=== PATIENT | female | born 1935 | race Caucasian/White ===

== ENCOUNTER 2016-11-24 09:07 | Day surgery (SDC) | payer MEDICARE, OTHER ==
--- NOTE | 2016-11-23 18:05 | PCM.PREANE ---
Preanesthetic Assessment - ANESTHESIA/TRANSFUSION/FAMILY HX Anesthesia/Transfusion History: Prior Anesthesia, Prior Transfusion Type of Anesthesia Reaction: Denies: Allergy, Anesthesia Awareness, Excessive Somnolence, Excessive Nausea/Vomiting, Excessive Itching, Excessive Shivering, Malignant Hyperthermia, Malignant Hyperthermia, Family History, Pseudocholinesterase Deficiency, Pseudocholinesterase Deficiency, Family History of, Urinary Retention, Unknown, Other (see below) Family History of Anesthesia Reaction: No Type of Transfusion Reactions: Denies: Anaphylaxis, Bloody Urine, Chills, Fainting/Dizziness, Fever, Flank Pain, Hemolytic Reaction, Hives, Rash, Transfusion Related Acute Lung Injury, Unknown, Other (see below) - REVIEW OF SYSTEMS Constitutional: Reports: no symptoms 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 Respiratory: Reports: no symptoms Cardiovascular: Reports: blood pressure problem (HTN, controlled) GI: Reports: no symptoms Other: Reports: diabetes (type II, glucose 137 this am), thyroid problems ( controlled hypoparathyroidism) - PHYSICAL ASSESSMENT Height: 1.73 m Weight: 91.626 kg NPO Status Date: 11/23/16 NPO Status Time: 21:00 ASA Class: 3 Mental Status: alert & oriented x3 Airway Class: Mallampati = 3 Dentition: Reports: dentures (upper and lower) Thyro-Mental Finger Breadths: 3 Mouth Opening Finger Breadths: 3 ROM/Head Extension: full Respiratory Status: lungs clear to auscultation bilaterally (diminished respiratory effort. O2 sats in low 90's, supplemental O2 applied in day surgery ) Cardiovascular Status: regular rate & rhythm, normal S1, S2, no murmur, blood pressure WNL - ALLERGIES Allergies/Adverse Reactions: Allergies Allergy/AdvReac Type Severity Reaction Status Date / Time No Known Allergies Allergy Verified 06/30/16 20:39 - ANESTHESIA PLAN Anesthesia Type Planned: MAC - ACKNOWLEDGEMENTS Pt an appropriate candidate for the planned anesthesia: Yes Alternatives and risks of anesthesia discussed w pt/guardian: Yes Pt/Guardian understands and agree with anesthesia plan: Yes PreAnesthesia Questionnaire HEENT History: Reports: None Other HEENT History: wears glasses, has top and bottom dentures Cardiovascular History: Reports: High cholesterol, Hypertension Respiratory History: Reports: None Gastrointestinal History: Reports: Other (see below) Other Gastrointestinal History: occasional heartburn, intermittent rectal bleeding increasing in frequency Genitourinary History: Reports: None 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: , Other (see below) Other OB/BYN History: 1991 hysterectomy; 5 pregnancies Musculoskeletal History: Reports: Osteoarthritis, Other (see below) Other Musculoskeletal History: hx of right pelvis fracture Neurological History: Psychiatric History: Reports: Depression Endocrine/Metabolic History: Reports: Diabetes, type II, Hypoparathyroidism Other Endocrine/Metabolic History: history of hypercalcemia Hematologic History: Reports: None Immunologic History: Reports: None Oncologic (Cancer) History: Reports: None Dermatologic History: Reports: None - Infectious Disease History Infectious Disease History: Reports: Chicken pox - Past Surgical History Head Surgeries/Procedures: Reports: None HEENT Surgical History: Reports: Cataract surgery Cardiovascular Surgical History: Reports: None GI Surgical History: Reports: Cholecystectomy Female Surgical History: Reports: Hysterectomy Endocrine Surgical History: Reports: Parathyroidectomy Neurological Surgical History: Reports: None - SUBSTANCE USE Smoking Status *Q: Never Smoker Second Hand Smoke Exposure: Yes Days Per Week of Alcohol Use: 0 Recreational Drug Use History: No - HOME MEDS Home Medications: Home Meds Donepezil HCl 10 mg PO BEDTIME 02/12/15 [History] Losartan [Cozaar] 25 mg PO DAILY 02/12/15 [History] SitaGLIPtin [Januvia] 50 mg PO DAILY 02/12/15 [History] Tolterodine Tartrate [Tolterodine Tartrate ER] 4 mg PO DAILY 02/12/15 [History] amLODIPine [Norvasc] 5 mg PO DAILY 02/12/15 [History] atorvaSTATin [Lipitor] 80 mg PO BEDTIME 02/12/15 [History] Acetaminophen [Tylenol] 650 mg PO Q4H PRN 06/30/16 [History] Cholecalciferol (Vitamin D3) [Vitamin D] 2,000 unit PO DAILY 06/30/16 [History] Venlafaxine HCl [Venlafaxine HCl ER] 75 mg PO DAILY 11/19/16 [History] - CURRENT (IN HOUSE) MEDS Current Meds: Current Medications Lactated Ringer's (Ringers, Lactated) 1,000 mls @ 125 mls/hr IV ASDIRECTED KIEL
[~2016-11-24 09:07] MED LIST: Lactated Ringers 1,000 ML IV SCH
[2016-11-24] MEDS ORDERED: fentaNYL 100 MCG/2 ML SDV ONE (09:39)
[2016-11-24] MEDS ORDERED: Propofol 200 MG/20 ML SDV ONE (09:39)
[2016-11-24] MEDS ORDERED: Midazolam 1 MG/ML 2 ML SDV ONE (09:39)
--- NOTE | 2016-11-24 11:19 | PCM.OPNOTE ---
- General Post-Op/Procedure Note Date of Surgery/Procedure: 11/24/16 (10:47-11:10) Operative Procedure(s): colonoscope Findings: see dict [id number] Pre Op Diagnosis: anemia Post-Op Diagnosis: diverticulosis Anesthesia Technique: Moderate sedation Primary Surgeon: Koffi Barnhart Complications: None Condition: Good
--- NOTE | 2016-11-24 11:29 | PCM.POSTAN ---
POST ANESTHESIA ASSESSMENT - MENTAL STATUS Mental Status: alert, oriented - RESPIRATORY Respiratory Status: respiratory rate WNL, airway patent, O2 saturation stable - CARDIOVASCULAR CV Status: pulse rate WNL, blood pressure stable - GASTROINTESTINAL GI Status: no symptoms - PAIN Pain Score: 0 - POST OP HYDRATION Hydration Status: adequate & stable
[2016-11-24 11:43] VITALS: BP 125/64
--- NOTE | 2016-11-24 11:50 | PCM48HPAN ---
Post Anesthesia Note - EVALUATION WITHIN 48HRS OF ANESTHETIC Vital Signs in Normal Range: Yes Patient Participated in Evaluation: Yes Respiratory Function Stable: Yes Airway Patent: Yes Cardiovascular Function Stable: Yes Hydration Status Stable: Yes Pain Control Satisfactory: Yes Nausea and Vomiting Control Satisfactory: Yes Mental Status Recovered: Yes
--- NOTE | 2016-11-24 19:24 | OR ---
SURGEON: Koffi Barnhart MD DATE OF PROCEDURE: 11/24/2016 PREOPERATIVE DIAGNOSIS: Anemic. POSTOPERATIVE DIAGNOSIS: Diverticulosis. COMPLICATIONS: None. PROCEDURE PERFORMED: Colonoscopy. DESCRIPTION OF PROCEDURE: The patient was taken to the endoscopy room. A time out was called, patient identified, and procedure identified. Diprivan was then administrated. Patient went from awake to sleep, hearing doctor talking or door closing is normal. Perineum inspection and digital examination were then performed. A well- lubricated colonoscope was gently inserted through the rectum, advanced past the rectosigmoid junction, the descending colon, splenic flexure, transverse colon, hepatic flexure, ascending colon, arrived to the cecum. Cecum was identified as dictated in the finding. Then the scope was carefully withdrawn while attention was paid to the mucosal surface for any abnormality. Air will be sucked out during the scope withdrawal. At the rectum, retroflexed to examine any rectal diseases, fistula or hemorrhoids. Patient tolerated procedure well. There were no intraoperative complications, and Dr. Barnhart was present throughout the whole procedure. FINDINGS: 1. 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 The patient is soundly snoring. 2. The patient's bowel prep was excellent. Very little liquid stool. No semi- formed stool. 3. The patient's colon rather straight forward. Cecum indicated by ileocecal fold, one-to-one indentation, light immittance, and appendiceal orifice. The mucosa was examined upon scope pulling out and the patient has some mild diverticulosis on the left colon. No signs or symptoms of diverticulitis. No polyp, mass, growth, inflammation, stricture, AV malformation, bleeding, ulceration. The patient has mild external hemorrhoids. The patient would benefit from repeat colonoscopy on an as needed basis or if clinically indicated otherwise. MAYLIN / KENNY /[id number]
== END 2016-11-24 12:00 | disposition home or self-care (01) ==
LOC: MW.SDS 09:07
PROVIDERS: ATTEND Surgery
DX: K57.30 Diverticulosis of large intestine without perforation or abscess without bleeding (principal); I10 Essential (primary) hypertension; F41.9 Anxiety disorder, unspecified; E11.9 Type 2 diabetes mellitus without complications; E78.00 Pure hypercholesterolemia, unspecified; E78.5 Hyperlipidemia, unspecified; Z90.710 Acquired absence of both cervix and uterus; Z79.899 Other long term (current) drug therapy; Z78.9 Other specified health status
CPT/HCPCS: 45378; 82962; J2250; J3010; J7120; J2704

== ENCOUNTER → 2016-12-04 | Outpatient (CLI) | payer MEDICARE, OTHER | LOC: MW.CHGS 08:00 | PROVIDERS: ATTEND Surgery | DX: K57.30 Diverticulosis of large intestine without perforation or abscess without bleeding (principal) | CPT/HCPCS: G0463 ==

== ENCOUNTER 2018-01-20 09:48 | Emergency (ER) | payer MEDICARE, OTHER ==
--- NOTE | 2018-01-20 10:09 | EDM.PDOC ---
ED HPI GENERAL MEDICAL PROBLEM - General Chief Complaint: ENT Problem Stated Complaint: FEVER AND RT EAR IS SWOLLEN Time Seen by Provider: 01/20/18 10:03 Source of Information: Reports: Patient History Limitations: Reports: No Limitations - History of Present Illness INITIAL COMMENTS - FREE TEXT/NARRATIVE: HISTORY AND PHYSICAL: []82-year-old female is swollen red ear company by daughter History of Present Illness: []Daughter last saw her 4 PM yesterday and ear was not erythematous Patient is speaking in full sentences. Denies any fever denies any change in mental stability Review of Systems: As per history of present illness and below otherwise all systems reviewed and negative. Past medical history: As per history of present illness and as reviewed below otherwise noncontributory. Surgical history: As per history of present illness and as reviewed below otherwise noncontributory. Social history: No reported history of drug or alcohol abuse. Family history: As per history of present illness and as reviewed below otherwise noncontributory. Physical exam: Alert and oriented elderly female who is right ear is quite erythematous and edematous. Edema comes from behind the pinna across the ear and half of her cheek. Hot To touch. No pustular component no scaling. HEENT: Atraumatic, normocehpalic, pupils reactive, negative for conjunctival pallor or scleral icterus, mucous membranes moist, throat clear, neck supple, nontender, trachea midline. Lungs: Clear to auscultation, breath sounds equal bilaterally, chest non tender. Heart: S1S2, regular, negative for clicks, rubs, or JVD. Abdomen: Soft, nondistended, nontender. Negative for masses or hepatossplenmegaly. Negative for costovertebral tenderness. Pelvis: Stable nontender. Genitourinary: Deferred. Rectal: Deferred Extremities: Atraumatic, negative for cords or calf pain. Neurovascular unremarkable. Neuro: Awake, alert, oriented. Cranial nerves II through XII unremarkable. Cerebellum unremarkable. Motor and sensory unremarkable throughout. Exam nonfocal. Discussed this case with Dr. Ina Thomas, ENT specialist who is in agreement with this plan of action. Diagnostics: [] Therapeutics: [] Impression: [Cellulitis versus spider bite] Plan: []Home See Dr. Gayle tomorrow if unable to be seen return to emergency room for reevaluation Augmentin 875 twice a day Medrol Dosepak Definitive disposition and diagnosis as appropriate pending reevaluation and review of above. R ear Pain Score (Numeric/FACES): 3 - Related Data Allergies Allergy/AdvReac Type Severity Reaction Status Date / Time No Known Allergies Allergy Verified 06/30/16 20:39 Home Meds: Home Meds Donepezil HCl 10 mg PO BEDTIME 02/12/15 [History] Losartan [Cozaar] 25 mg PO DAILY 02/12/15 [History] SitaGLIPtin [Januvia] 50 mg PO DAILY 02/12/15 [History] Tolterodine Tartrate [Tolterodine Tartrate ER] 4 mg PO DAILY 02/12/15 [History] atorvaSTATin [Lipitor] 80 mg PO BEDTIME 02/12/15 [History] Acetaminophen [Tylenol] 650 mg PO Q4H PRN 06/30/16 [History] Cholecalciferol (Vitamin D3) [Vitamin D] 2,000 unit PO DAILY 06/30/16 [History] Venlafaxine HCl [Venlafaxine HCl ER] 75 mg PO DAILY 11/19/16 [History] Amoxicillin/Potassium Clav [Augmentin 875-125 Tablet] 1 each PO Q12HR #14 tablet 01/20/18 [Rx] L.acidoph,Paracasei, B.lactis [Probiotic] 1 cap PO DAILY 01/20/18 [History] Levothyroxine 25 mcg PO DAILY 01/20/18 [History] Sertraline [Zoloft] 25 mg PO DAILY 01/20/18 [History] methylPREDNISolone [Medrol] 4 mg PO ASDIRECTED #1 dosepk 01/20/18 [Rx] Past Medical History HEENT History: Reports: None Other HEENT History: wears glasses, has top and bottom dentures Cardiovascular History: Reports: High Cholesterol, Hypertension Respiratory History: Reports: None Gastrointestinal History: Reports: Other (See Below) Other Gastrointestinal History: occasional heartburn, intermittent rectal bleeding increasing in frequency Genitourinary History: Reports: None 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: , Other (See Below) Other OB/BYN History: 1991 hysterectomy; 5 pregnancies Musculoskeletal History: Reports: Osteoarthritis, Other (See Below) Other Musculoskeletal History: hx of right pelvis fracture Neurological History: Psychiatric History: Reports: Depression Other Psychiatric History: Early Dementia Endocrine/Metabolic History: Reports: Diabetes, Type II, Hypoparathyroidism Other Endocrine/Metabolic History: history of hypercalcemia Hematologic History: Reports: None Immunologic History: Reports: None Oncologic (Cancer) History: Reports: None Dermatologic History: Reports: None - Infectious Disease History Infectious Disease History: Reports: Chicken Pox, Mumps - Past Surgical History Head Surgeries/Procedures: Reports: None HEENT Surgical History: Reports: Cataract Surgery Female Surgical History: Reports: Hysterectomy Neurological Surgical History: Reports: None Social & Family History - Family History Family Medical History: Unobtainable - Tobacco Use Smoking Status *Q: Never Smoker Second Hand Smoke Exposure: Yes - Caffeine Use Caffeine Use: Reports: Coffee - Alcohol Use Days Per Week of Alcohol Use: 0 - Recreational Drug Use Recreational Drug Use: No ED ROS ENT - Review of Systems Review Of Systems: ROS reveals no pertinent complaints other than HPI. ED EXAM, ENT - Physical Exam Exam: See Below (see dictation) Course - Vital Signs Last Recorded V/S: Last Vital Signs Temp 37.0 C 01/20/18 09:57 Pulse 85 01/20/18 09:57 Resp 18 01/20/18 09:57 BP 194/92 H 01/20/18 09:57 Pulse Ox 92 L 01/20/18 09:57 Departure - Departure Time of Disposition: 10:15 Disposition: Home, Self-Care 01 Condition: Good Clinical Impression: Cellulitis of right ear Otitis externa Qualifiers: Noninfectious otitis externa type: unspecified noninfectious type Chronicity: acute Laterality: right - Discharge Information Prescriptions: Amoxicillin/Potassium Clav [Augmentin 875-125 Tablet] 1 each PO Q12HR #14 tablet methylPREDNISolone [Medrol] 4 mg PO ASDIRECTED #1 dosepk Instructions: Cellulitis, Adult, [id number] Referrals: Jonathan Gayle MD [Primary Care Provider] - Forms: ED Department Discharge Additional Instructions: The following information is given to patients seen in the emergency department who are being discharged to home. This information is to outline your options for follow-up care. We provide all patients seen in our emergency department with a follow-up referral. The need for follow-up, as well as the timing and circumstances, are variable depending upon the specifics of your emergency department visit. If you don't have a primary care physician on staff, we will provide you with a referral. We always advise you to contact your personal physician following an emergency department visit to inform them of the circumstance of the visit and for follow-up with them and/or the need for any referrals to a consulting specialist. The emergency department will also refer you to a specialist when appropriate. This referral assures that you have the opportunity for followup care with a specialist. All of these measure are taken in an effort to provide you with optimal care, which includes your followup. Under all circumstances we always encourage you to contact your private physician who remains a resource for coordinating your care. When calling for followup care, please make the office aware that this follow-up is from your recent emergency room visit. If for any reason you are refused follow-up, please contact the [facility] emergency department at and asked to speak to the emergency department charge nurse. Found to have a cellulitis 2-year-old right ear Augmentin 875 mg twice daily 1 week Medrol dose pack will reduce the swelling Follow-up with your primary care tomorrow Follow-up with Dr. Ina Thomas ENT specialist on Wednesday [facility] [address] [place] [address] Phone:
[2018-01-20 11:27] VITALS: BP 154/89
== END 2018-01-20 10:45 | disposition home or self-care (01) ==
LOC: MW.ED 09:48
DX: H60.11 Cellulitis of right external ear (principal); H60.501 Unspecified acute noninfective otitis externa, right ear; I10 Essential (primary) hypertension; E11.9 Type 2 diabetes mellitus without complications; Z79.899 Other long term (current) drug therapy
CPT/HCPCS: 99283

== ENCOUNTER 2019-02-05 13:39 | Emergency (ER) | payer MEDICARE, OTHER ==
[2019-02-05] MEDS ORDERED: Ketorolac 30 MG/ML SDV IM ONE (13:54)
--- NOTE | 2019-02-05 15:00 | EDM.PDOC ---
ED HPI GENERAL MEDICAL PROBLEM - General Chief Complaint: Lower Extremity Injury/Pain Stated Complaint: BETHAL PT Time Seen by Provider: 02/05/19 13:43 Source of Information: Reports: Patient History Limitations: Reports: No Limitations - History of Present Illness INITIAL COMMENTS - FREE TEXT/NARRATIVE: History of present illness: []Patient states she's having right hip pain does not recall any trauma. She came to the ED on the [employer] bus and is currently living at the [facility]. Review of systems: As per history of present illness and below otherwise all systems reviewed and negative. Past medical history: As per history of present illness and as reviewed below otherwise noncontributory. Surgical history: As per history of present illness and as reviewed below otherwise noncontributory. Social history: No reported history of drug or alcohol abuse. Family history: As per history of present illness and as reviewed below otherwise noncontributory. Physical exam: General: Well developed, well nourished in NAD HEENT: Atraumatic, normocephalic, pupils reactive, negative for conjunctival pallor or scleral icterus, mucous membranes moist, throat clear, neck supple, nontender, trachea midline. Lungs: Clear to auscultation, breath sounds equal bilaterally, chest nontender. Heart: S1S2, regular, negative for clicks, rubs, or JVD. Abdomen: NABS, Soft, nondistended, nontender. Negative for masses or hepatosplenomegaly. Negative for costovertebral tenderness. Pelvis: Stable nontender. Genitourinary: Deferred. Rectal: Deferred. Extremities: Atraumatic, tender to palpation of the right hip, there is no leg rotation or shortening on the right MVI. negative for cords or calf pain. Neurovascular unremarkable. Neuro: Awake, alert, oriented. Cranial nerves II through XII unremarkable. Cerebellum unremarkable. Motor and sensory unremarkable throughout. Exam nonfocal. Skin:warm and dry Diagnostics: Right hip and pelvis Therapeutics: Toradol for pain ED Course: stable Impression: right hip pain Prescriptions: None Plan: Follow-up with primary care ibuprofen for pain return if symptoms worsen or change. Definitive disposition and diagnosis as appropriate pending reevaluation and review of above. right hip Pain Score (Numeric/FACES): 9 - Related Data Allergies Allergy/AdvReac Type Severity Reaction Status Date / Time No Known Allergies Allergy Verified 02/05/19 13:51 Home Meds: Home Meds Donepezil HCl 23 mg PO BEDTIME 02/12/15 [History] Losartan [Cozaar] 50 mg PO DAILY 02/12/15 [History] SitaGLIPtin [Januvia] 50 mg PO DAILY 02/12/15 [History] Tolterodine Tartrate [Tolterodine Tartrate ER] 4 mg PO DAILY 02/12/15 [History] atorvaSTATin [Lipitor] 80 mg PO BEDTIME 02/12/15 [History] Acetaminophen [Tylenol] 650 mg PO Q4H PRN 06/30/16 [History] Cholecalciferol (Vitamin D3) [Vitamin D] 2,000 unit PO DAILY 06/30/16 [History] Venlafaxine HCl [Venlafaxine HCl ER] 75 mg PO DAILY 11/19/16 [History] L.acidoph,Paracasei, B.lactis [Probiotic] 1 cap PO DAILY 01/20/18 [History] Levothyroxine 25 mcg PO DAILY 01/20/18 [History] Past Medical History HEENT History: Reports: None Other HEENT History: wears glasses, has top and bottom dentures Cardiovascular History: Reports: High Cholesterol, Hypertension Respiratory History: Reports: None Gastrointestinal History: Reports: Other (See Below) Other Gastrointestinal History: occasional heartburn, intermittent rectal bleeding increasing in frequency Genitourinary History: Reports: None 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: , 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 (See Below) 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; 5 pregnancies Musculoskeletal History: Reports: Osteoarthritis, Other (See Below) Other Musculoskeletal History: hx of right pelvis fracture Neurological History: Reports: None Psychiatric History: Reports: Depression Other Psychiatric History: Early Dementia Endocrine/Metabolic History: Reports: Diabetes, Type II, Hypoparathyroidism Other Endocrine/Metabolic History: history of hypercalcemia Hematologic History: Reports: None Immunologic History: Reports: None Oncologic (Cancer) History: Reports: None Dermatologic History: Reports: None - Infectious Disease History Infectious Disease History: Reports: Chicken Pox, Mumps - Past Surgical History Head Surgeries/Procedures: Reports: None HEENT Surgical History: Reports: Cataract Surgery Cardiovascular Surgical History: Reports: None Respiratory Surgical History: Reports: None GI Surgical History: Reports: None Female Surgical History: Reports: Hysterectomy Endocrine Surgical History: Reports: None Neurological Surgical History: Reports: None Musculoskeletal Surgical History: Reports: None Dermatological Surgical History: Reports: None Social & Family History - Family History Family Medical History: Unobtainable - Tobacco Use Smoking Status *Q: Never Smoker Second Hand Smoke Exposure: No - Caffeine Use Caffeine Use: Reports: Coffee, Soda, Tea - Recreational Drug Use Recreational Drug Use: No Review of Systems - Review of Systems Review Of Systems: ROS reveals no pertinent complaints other than HPI. ED EXAM, GENERAL - Physical Exam Exam: See Below (The history of present illness) Course - Vital Signs Last Recorded V/S: Last Vital Signs Temp 97.3 F 02/05/19 13:52 Pulse 73 02/05/19 14:48 Resp 17 02/05/19 14:48 BP 173/76 H 02/05/19 14:48 Pulse Ox 97 02/05/19 14:48 - Orders/Labs/Meds Meds: Medications Discontinued Medications Generic Name Dose Route Start Last Admin Trade Name Freq PRN Reason Stop Dose Admin Ketorolac Tromethamine 30 mg 02/05/19 13:54 02/05/19 14:45 Toradol IM 02/05/19 13:55 30 mg ONETIME ONE Administration Departure - Departure Time of Disposition: 16:18 Disposition: Home, Self-Care 01 Condition: Good Clinical Impression: Hip pain, right - Discharge Information *PRESCRIPTION DRUG MONITORING PROGRAM REVIEWED*: No *COPY OF PRESCRIPTION DRUG MONITORING REPORT IN PATIENT SINDHU: No Referrals: PCP,Unknown [Primary Care Provider] - Forms: ED Department Discharge Additional Instructions: The following information is given to patients seen in the emergency department who are being discharged to home. This information is to outline your options for follow-up care. We provide all patients seen in our emergency department with a follow-up referral. The need for follow-up, as well as the timing and circumstances, are variable depending upon the specifics of your emergency department visit. If you don't have a primary care physician on staff, we will provide you with a referral. We always advise you to contact your personal physician following an emergency department visit to inform them of the circumstance of the visit and for follow-up with them and/or the need for any referrals to a consulting specialist. The emergency department will also refer you to a specialist when appropriate. This referral assures that you have the opportunity for follow-up care with a specialist. All of these measure are taken in an effort to provide you with optimal care, which includes your follow-up. Under all circumstances we always encourage you to contact your private physician who remains a resource for coordinating your care. When calling for follow-up care, please make the office aware that this follow-up is from your recent emergency room visit. If for any reason you are refused follow-up, please contact the [facility] Emergency Department at and asked to speak to the emergency department charge nurse. [facility] [address] [place] [phone]
--- NOTE | 2019-02-05 15:23 | CR ---
HISTORY: Left hip pain. TECHNIQUE: AP pelvis and 2 views of the left hip. COMPARISON: No prior. FINDINGS: There is no acute fracture. There are remote fractures of the right superior and inferior pubic rami with mild to moderate deformity. No significant hip joint space narrowing. Degenerative changes within the lower lumbar spine. Sacroiliac joint degenerative changes. IMPRESSION: 1. No acute fracture. 2. Remote fractures of the right superior and inferior pubic rami. 3. No significant hip joint space narrowing. Dictated by Igor Sanders MD @ 02/05/2019 3:21:21 PM Dictated by: Igor Sanders MD @ 02/05/2019 15:21:24 (Electronically Signed)
[2019-02-05] MEDS ORDERED: cloNIDine 0.1 MG Tab PO ONE (16:51)
[2019-02-05] MEDS ORDERED: cloNIDine 0.1 MG Tab ONE (16:57)
[2019-02-05] MEDS ORDERED: traMADol 50 MG Tab PO ONE (17:41)
[2019-02-05 17:54] VITALS: BP 163/91
== END 2019-02-05 17:54 | disposition home or self-care (01) ==
LOC: MW.ED 13:39
DX: M25.551 Pain in right hip (principal); I10 Essential (primary) hypertension; E78.00 Pure hypercholesterolemia, unspecified; E11.9 Type 2 diabetes mellitus without complications; E20.9 Hypoparathyroidism, unspecified; Z79.899 Other long term (current) drug therapy
CPT/HCPCS: 73502; 96372; 99283; A9270; J1885

== ENCOUNTER 2022-05-14 19:06 | Emergency (ER) | payer MEDICARE, OTHER ==
[2022-05-14 21:13] LABS: CARBON DIOXIDE,CO2 28.6 mmol/L (21.0-32.0); POTASSIUM,K 4.2 mmol/L (3.5-5.1)
[2022-05-14 21:25] LABS: CORONAVIRUS COVID-19 NAA NEGATIVE (NEGATIVE); INFLUENZA A NAA NEGATIVE (NEGATIVE); INFLUENZA B NAA NEGATIVE (NEGATIVE)
[2022-05-15 00:32] VITALS: BP 102/54; PULSE 77
== END 2022-05-14 22:03 | disposition home or self-care (01) ==
LOC: MW.ED 19:06
DX: F05 Delirium due to known physiological condition (principal); I10 Essential (primary) hypertension; E11.9 Type 2 diabetes mellitus without complications; Z79.899 Other long term (current) drug therapy; Z90.710 Acquired absence of both cervix and uterus; Z20.822 Contact with and (suspected) exposure to COVID-19
CPT/HCPCS: 0240U; 36415; 71045; 80053; 83605; 84484; 85025; 93005; 99284